=== PATIENT | female | born 1955 | race Caucasian/White ===

== ENCOUNTER 2017-04-03 18:00 | Emergency (ER) | payer OTHER ==
[2017-04-03 18:20] VITALS: TEMP 97.3; BMI 46.0
--- NOTE | 2017-04-03 18:20 | PDOC ---
Rapid Medical Evaluation Time Seen by Provider: 04/03/17 18:13 Medical Evaluation: Allergies Allergy/AdvReac Type Severity Reaction Status Date / Time No Known Allergies Allergy Verified 08/21/12 17:01 04/03/17 18:13 The patient presents with a chief complaint of: [Abdominal pain and vomiting today. No fever. ] I have performed a brief in-person evaluation of this patient. Pertinent physical exam findings: vss, [Generalized abdominal pain, lungs clear , RRR, ] I have ordered the following: [cbc, cmp, amylase, lipase. Patient is unstable on feet for further testing in triage.] The patient will proceed to the ED for further evaluation. Discharge Disposition - Diagnosis Abdominal pain - Referrals - Patient Instructions - Post Discharge Activity
[2017-04-03] MEDS ORDERED: morphine CARPU-JECT 2 MG/1 ML DISP.SYRIN IVPUSH ONE (19:21)
[2017-04-03] MEDS ORDERED: ONDANSETRON 4 MG/2 ML VIAL IVPUSH ONE (19:28)
--- NOTE | 2017-04-03 19:28 | PDOC ---
History of Present Illness - General Chief Complaint: Pain Stated Complaint: STOMACH PAIN Time Seen by Provider: 04/03/17 18:13 - History of Present Illness Initial Comments: Ms. Quinn is a 61yo obese mauritanian speaking F with a PMHX of GERD, HTN, HLD, DM2, Hypothyroidism who presents w/ sharp, constant, epigastric abdominal pain after eating dinner. Patient is a difficult historian, at times she states the pain radiates to the back, at times she says it radiates into the chest. Had 1 episode of non-bloody diarrhea. She has had this pain intermittently before after meals, but states this one is more severe, and is assoc w/ NBNB emesis x3. She is unable to keep any food down. Denies hematemesis/hematochezia. Denies CP, SOB, fevers, chills. No prior abdominal surgeries. PMD - Dr Angie Agrawal Allergies - NKDA SH - Denies alcohol, drugs, smoking SgHx - Shoulder surgery, no abd surgeries Past History - Past Medical History Allergies/Adverse Reactions: Allergies Allergy/AdvReac Type Severity Reaction Status Date / Time No Known Allergies Allergy Verified 08/21/12 17:01 Home Medications: Ambulatory Orders Aspirin [ASA -] 81 mg PO DAILY 04/03/17 Calcium Carbonate/Vitamin D3 [Oyster Shell Calcium Tablet] 1 each PO DAILY 04/03 Furosemide [Lasix -] 40 mg PO DAILY 04/03/17 Gemfibrozil [Lopid -] 600 mg PO BID 04/03/17 Glipizide [Glipizide Xl] 5 mg PO DAILY 04/03/17 Levothyroxine [Synthroid -] 125 mcg PO DAILY 04/03/17 Meclizine HCl [Antivert -] 25 mg PO DAILY PRN 04/03/17 Metformin HCl [Glucophage -] 500 mg PO BID 04/03/17 Metoclopramide HCl [Reglan -] 10 mg PO BID 04/03/17 Pantoprazole Sodium [Protonix -] 40 mg PO DAILY 04/03/17 Sertraline HCl [Zoloft -] 100 mg PO DAILY 04/03/17 Simvastatin [Zocor] 80 mg PO HS 04/03/17 Trazodone HCl [Desyrel -] 100 mg PO HS 04/03/17 Valsartan [Diovan] 160 mg PO DAILY 04/03/17 Asthma: Yes COPD: No Diabetes: Yes GI Disorders: Yes (GERD) HTN: Yes Hypercholesterolemia: Yes Psychiatric Problems: Yes (DEPRESSION) Thyroid Disease: Yes Other medical history: VERTIGO - Surgical History Abdominal Surgery: Yes (T.LIGATION) - Suicide/Smoking/Psychosocial Hx Smoking Status: Yes Smoking History: Former smoker Have you smoked in the past 12 months: No Number of Cigarettes Smoked Daily: 1 Information on smoking cessation initiated: No 'Breaking Loose' booklet given: 08/21/12 Hx Alcohol Use: No Drug/Substance Use Hx: No Substance Use Type: None Hx Substance Use Treatment: No *Physical Exam - Vital Signs Last Vital Signs Temp Pulse Resp BP Pulse Ox 97.3 F L 60 18 132/101 100 04/03/17 18:16 04/03/17 18:16 04/03/17 18:16 04/03/17 18:16 04/03/17 18:16 - Physical Exam Comments: GEN: AAOx3, NAD, obese female, Lying in moderate distress HEENT: PERRLA, EOMi CV: S1, S2, RRR LUNG: CTABL ABD: Soft, diffuse tender to palpation, mostly in epigastrium MSK: No edema, no erythema NEURO: CN 2-12 intact ED Treatment Course - LABORATORY CBC & Chemistry Diagram: 04/03/17 19:00 04/03/17 18:48 Medical Decision Making - Medical Decision Making 61yo obese F w/ HTN, HLD, GERD with intermittent post-prandial epigastric pain who presents w/ sudden, sharp, post-prandial epigastric pain w/ assoc emesis and diarrhea. Likely GI related DDX include: Cholecystitis, atypical ACS,, Pancreatitis, gastric ulcer, Perforation, -- CBC, CMP, Lipase, T&S, Coags -- Cardiac Profile, EKG -- CXR to r/o free air from perforation -- Abdominal U/S -- Morphine 2mg & Zofran Will Reassess.. *DC/Admit/Observation/Transfer Diagnosis at time of Disposition: Abdominal pain - Discharge Dispostion Disposition: HOME Condition at time of disposition: Stable Admit: No - Referrals Referrals: Angie Agrawal MD [Primary Care Provider] - - Patient Instructions Printed Discharge Instructions: DI for Gastroesophageal Reflux Disease (GERD) - Post Discharge Activity
[2017-04-03] MEDS ORDERED: ONDANSETRON 4 MG/2 ML VIAL ONE (19:34)
[2017-04-03] MEDS ORDERED: MORPHINE SULFATE 10 MG/1 ML *VIAL ONE (19:34)
[2017-04-03 20:02] LABS: ALBUMIN 4.6 g/dl (3.4-5.0); ALK PHOS 154 U/L (45-117); AMYLASE 72 U/L (25-115); ANION GAP 13 (8-16); BILIRUBIN,TOTAL 0.9 mg/dL (0.2-1.0); BLOOD UREA NITROGEN 20 mg/dL (7-18); CALCIUM 8.3 mg/dL (8.5-10.1); CHLORIDE 100 mmol/L (98-107); CO2 26 mmol/L (21-32); GLUCOSE,RANDOM 122 mg/dL (74-106); SGPT/ALT 84 U/L (12-78); SODIUM 139 mmol/L (136-145); TOT PROT 8.4 g/dl (6.4-8.2)
[2017-04-03 20:02] LABS: BASO % 0.3 % (0-2.0); EOS % 0.6 % (0-4.5); HEMOGLOBIN 13.3 GM/dL (10.7-15.3); LYMPH % 7.1 % (8-40); MCH 29.2 pg (25.7-33.7); MCHC 32.6 g/dl (32.0-36.0); MEAN CELL VOLUME 89.7 fl (80-96); MEAN PLT VOLUME 10.6 fl (7.5-11.1); MONO % 4.4 % (3.8-10.2); NEUT % 87.6 % (42.8-82.8); PLATELET COUNT 262 K/MM3 (134-434); RBC 4.56 M/mm3 (3.60-5.2); RDW 17.1 % (11.6-15.6); WHITE BLOOD COUNT 14.4 K/mm3 (4.0-10.0)
[2017-04-03 20:31] LABS: LIPASE 227 U/L (73-393); POTASSIUM 4.4 mmol/L (3.5-5.1); SGOT/AST 116 U/L (15-37)
--- NOTE | 2017-04-03 21:03 | PDOC ---
Attending Attestation - Resident Resident Name: Wali Rashid - ED Attending Attestation I have performed the following: I have examined & evaluated the patient, The case was reviewed & discussed with the resident, I agree w/resident's findings & plan, Exceptions are as noted - HPI HPI: 04/03/17 20:56 61yoF hx of morbid obesity, HTN, HL resents w/ epig pain after eating. Occ gets this but more severe than usual tongiht, + vomiting x 4 episodes at home. No diarrhea, no hx of abd surgery. Ate fish as rice. PMhx per resident note SHx per resident note NKDA VS reviewed, as charted moaning in pain but NAD MM slight dry RRR CTA soft, NTND, no guarding, no rebound Neuro grossly intact A: 61yoF w/ morbid obesity and cardaic risk factors presents w/ severe epig abd pain and vomiting after eating. DDx includes acute cholecystitis, pancreatitis, PUD/GERD, AGE, less likely anginal equivalent.. - labs - RUQ sono - EKG - upright chest - reeval for dispo - Physicial Exam PE: 04/03/17 21:03 See above - Medical Decision Making 04/03/17 21:03 See above
[2017-04-03 21:41] LABS: INR 0.98 (0.82-1.09); PROTHROMBIN TIME (PATIENT) 11.1 SEC (9.98-11.88)
[2017-04-03 23:11] VITALS: BP 156/88; PULSE 73
[2017-04-03] MEDS ORDERED: MAG HYDROX/AL HYDROX/SIMETH 30 ML UNIT-DOSE CUP PO ONE (23:15)
[2017-04-03] MEDS ORDERED: MAG HYDROX/AL HYDROX/SIMETH 30 ML UNIT-DOSE CUP ONE (23:22)
[2017-04-03] MEDS ORDERED: FAMOTIDINE 20 MG/50 ML IVPB 20 MG/50 ML MG IVPB ONE (23:22)
[2017-04-03] MEDS ORDERED: FAMOTIDINE IV 20 MG/12 ML VIAL IVPUSH SCH (23:30)
--- NOTE | 2017-04-04 13:44 | EKG ---
Test Reason : Blood Pressure : / mmHG Vent. Rate : 067 BPM Atrial Rate : 067 BPM P-R Int : 000 ms QRS Dur : 074 ms QT Int : 412 ms P-R-T Axes : 067 225 -03 degrees QTc Int : 435 ms POOR DATA QUALITY, INTERPRETATION MAY BE ADVERSELY AFFECTED NORMAL SINUS RHYTHM RIGHT SUPERIOR AXIS DEVIATION RIGHT VENTRICULAR HYPERTROPHY WITH REPOLARIZATION ABNORMALITY CANNOT RULE OUT ANTEROSEPTAL INFARCT , AGE UNDETERMINED ABNORMAL ECG WHEN COMPARED WITH ECG OF 29-AUG-2012 08:59, QUESTIONABLE CHANGE IN QRS AXIS MINIMAL CRITERIA FOR ANTEROSEPTAL INFARCT ARE NOW PRESENT Confirmed by MD LINDY, VINAY ([id number]) on 04/04/2017 1:43:54 PM Referred By: Confirmed By:VINAY ISRAEL MD
== END 2017-04-03 23:56 | disposition home or self-care (01) ==
LOC: JER 18:00
PROC: 3E033NZ Introduction of Analgesics, Hypnotics, Sedatives into Peripheral Vein, Percutaneous Approach (ICD-10-PCS; principal; 2017-04-03)
PROC: 3E033GC Introduction of Other Therapeutic Substance into Peripheral Vein, Percutaneous Approach (ICD-10-PCS; 2017-04-03)
PROC: 3E033GC Introduction of Other Therapeutic Substance into Peripheral Vein, Percutaneous Approach (ICD-10-PCS; 2017-04-03)
DX: R10.84 Generalized abdominal pain (principal); K21.9 Gastro-esophageal reflux disease without esophagitis; I10 Essential (primary) hypertension; E11.9 Type 2 diabetes mellitus without complications; Z79.84 Long term (current) use of oral hypoglycemic drugs; E03.9 Hypothyroidism, unspecified
CPT/HCPCS: 36415; 71045-TC; 76705-TC; 80053; 82150; 82550; 82553; 83690; 84484; 85025; 85610; 93005; 93010; 96374; 96375; 99284-25

== ENCOUNTER 2018-08-13 17:17 | Inpatient (IN) | payer OTHER | END 2018-08-17 16:30 | disposition home health service (06) | LOC: J5S 08-14 04:02 → JER 17:17 → JERBED 22:27 ==

== ENCOUNTER 2019-05-12 19:24 | Observation (INO) | payer OTHER ==
[2019-05-12 19:38] VITALS: BMI 44.1
--- NOTE | 2019-05-12 21:26 | PDOC ---
History of Present Illness - General Chief Complaint: Lightheaded Stated Complaint: DIZZINESS/WEAKNESS History Source: Patient Exam Limitations: No Limitations - History of Present Illness Initial Comments: 05/12/19 21:21 63 yo female pmh morbid obesity, HTN, HLD, NIDDM, hypothyroidism, CHF, asthma/COPD (former smoker, quit 15y ago) on albuterol and Symbicort presents to the ED for 2 weeks of cough and fevers (fevers resolved) with new epigastric burning, nausea and diaphoresis. Pt states the epigastric burning, nausea, SOB and diaphoresis started at 7 pm. Denies hx of WI, CP, back pain, calf swel ling/tenderness, changes in bowel or bladder habits. Denies sick contacts or recent travel. Pt admitted 08/2018 for bronchitis Past History - Past Medical History Allergies/Adverse Reactions: Allergies Allergy/AdvReac Type Severity Reaction Status Date / Time No Known Allergies Allergy Verified 05/12/19 19:38 Home Medications: Ambulatory Orders Aspirin [ASA -] 81 mg PO DAILY 04/03/17 Furosemide [Lasix -] 40 mg PO DAILY 04/03/17 Gemfibrozil [Lopid -] 600 mg PO BID 04/03/17 Glipizide [Glipizide Xl] 5 mg PO DAILY 04/03/17 Meclizine HCl [Antivert -] 25 mg PO DAILY PRN 04/03/17 Pantoprazole Sodium [Protonix -] 40 mg PO DAILY 04/03/17 Sertraline HCl [Zoloft -] 100 mg PO DAILY 04/03/17 Simvastatin [Zocor] 80 mg PO HS 04/03/17 Valsartan [Diovan] 160 mg PO DAILY 04/03/17 metFORMIN HCL [Glucophage -] 500 mg PO BID 04/03/17 Albuterol Sulfate Inhaler - [Ventolin HFA Inhaler -] 1 puff IH DAILY 08/13/18 Azithromycin [Zithromax 250mg Tablets -] 250 mg PO UTDICT #6 tab 08/13/18 Budesonide/Formeterol Fumarate [SYMBICORT 160/4.5mcg -] 1 inh PO BID 08/13/18 Acetaminophen [Tylenol .Regular Strength -] 650 mg PO Q6H PRN tablet 08/17/18 Azithromycin [Zithromax 250mg Tablets -] 250 mg PO DAILY #2 tablet MDD 1 08/17/18 Levothyroxine [Synthroid -] 150 mcg PO DAILY@0700 tablet 08/17/18 Prednisone See Taper PO DAILY 12 Days #42 tablet 08/17/18 Topiramate [Topamax -] 50 mg PO DAILY tablet 08/17/18 Asthma: Yes COPD: No Diabetes: Yes GI Disorders: Yes (GERD) HTN: Yes Hypercholesterolemia: Yes Psychiatric Problems: Yes (DEPRESSION) Thyroid Disease: Yes - Surgical History Abdominal Surgery: Yes (T.LIGATION) - Psycho Social/Smoking Cessation Hx Smoking Status: Yes Smoking History: Never smoked Have you smoked in the past 12 months: No Number of Cigarettes Smoked Daily: 1 'Breaking Loose' booklet given: 08/21/12 Hx Alcohol Use: No Drug/Substance Use Hx: No Substance Use Type: None Hx Substance Use Treatment: No Review of Systems - Review of Systems Constitutional: Yes: See HPI HEENTM: Yes: See HPI Respiratory: Yes: See HPI Cardiac (ROS): Yes: See HPI ABD/GI: Yes: See HPI : Yes: See HPI Musculoskeletal: Yes: See HPI Integumentary: Yes: See HPI Neurological: Yes: See HPI *Physical Exam - Vital Signs Last Vital Signs Temp Pulse Resp BP Pulse Ox 98.1 F 69 18 139/72 98 05/12/19 19:36 05/12/19 19:36 05/12/19 19:36 05/12/19 19:36 05/12/19 19:36 - Physical Exam General Appearance: Yes: Nourished, Appropriately Dressed. No: Apparent Distress HEENT: positive: EOMI Neck: positive: Supple. negative: Carotid bruit Respiratory/Chest: positive: Lungs Clear, Normal Breath Sounds. negative: Accessory Muscle Use, Crackles, Rales, Rhonchi, Stridor, Wheezing Cardiovascular: positive: Regular Rhythm, Regular Rate, S1, S2. negative: Edema, JVD, Murmur Vascular Pulses: Dorsalis-Pedis (R): 4+, Doralis-Pedis (L): 4+ Gastrointestinal/Abdominal: positive: Flat, Soft. negative: Pulsatile Mass, Protuberent, Distended, Guarding, Rebound, Tenderness Musculoskeletal: negative: CVA Tenderness Extremity: positive: Normal Capillary Refill, Normal Inspection, Normal Range of Motion Integumentary: positive: Normal Color, Dry, Warm Neurologic: positive: Fully Oriented, Alert, Normal Mood/Affect Heart Score/ECG Review - History History: Highly suspicious - Electrocardiogram EKG: Normal - Age Age: 45-65 - Risk Factors Risk Factors Heart Score: Yes Hx Hypercholesterolemia, Yes Hx Hypertension, Yes Hx Diabetes, Yes Smoking History, Yes Hx Obesity Based on the list above the patient has:: >/=3 risk factors or Hx atherosclerotic disease - Troponin Troponin: </= normal limit - Score Heart Score - Total: 5 ED Treatment Course - LABORATORY CBC & Chemistry Diagram: 05/12/19 21:40 05/12/19 21:40 - RADIOLOGY Radiology Studies Ordered: Category Date Time Status CHEST PA & LAT [RAD] Stat Radiology 05/12/19 21:07 Ordered Medical Decision Making - Medical Decision Making 05/12/19 22:46 63 yo female pmh morbid obesity, HTN, HLD, NIDDM, hypothyroidism, CHF, asthma/COPD (former smoker, quit 15y ago) on albuterol and Symbicort presents to the ED for 2 weeks of cough and fevers (fevers resolved) with new epigastric burning, nausea and diaphoresis. Pt states the epigastric burning, nausea, SOB and diaphoresis started at 7 pm. Denies hx of WI, CP, back pain, calf swelling/tenderness, changes in bowel or bladder habits. Denies sick contacts or recent travel. Pt admitted 08/2018 for bronchitis Vitals WNL Heart score over 4, concerning story for ACS. Trops neg EKG NSR without acute changes from last admission 08/2018 Pt admits to SOB, given steroids and albuterol Pt to be admitted for ACS r/o MB sent, s/o to night team for further care and admission Discharge - Discharge Information Problems reviewed: Yes Clinical Impression/Diagnosis: ACS (acute coronary syndrome) Condition: Stable - Admission Yes - Follow up/Referral Referrals: Yoon Chao NP [Primary Care Provider] - - Patient Discharge Instructions - Post Discharge Activity
--- NOTE | 2019-05-12 21:30 | PDOC ---
Attending Attestation - Resident Resident Name: Malik Antunez - ED Attending Attestation I have performed the following: I have examined & evaluated the patient, The case was reviewed & discussed with the resident, I agree w/resident's findings & plan - HPI HPI: 05/12/19 21:38 Pt comes with 2 weeks of cough and fever and new SOB. Pt has epigastric pain SHe was doing ok until she came to the hospital to visit her daughter who has liver disease due to alcoholism. Pt is stressed and upset and has SOB and chest pain. Pt looks unwell - Physicial Exam PE: 05/12/19 21:40 Agree with resident exam 05/12/19 22:42 Heart lungs normal no wheeze no flank pain no rash pt is obese abd soft NT ND no pitting edema pt's face is cushinoid -- she is on flovent - Medical Decision Making 05/12/19 21:40 Labs CXR; pt will get steroids and duonebs She will have flu cx sent Pt will be reassessed 05/12/19 22:43 Pt will be admitted for CP given all her risk factors Heart Score/ECG Review - History History: Highly suspicious - Electrocardiogram EKG: Normal - Age Age: 45-65 - Risk Factors Risk Factors Heart Score: Yes Hx Hypercholesterolemia, Yes Hx Hypertension, Yes Hx Diabetes, Yes Positive family hx of cardiac disease, Yes Hx Obesity Based on the list above the patient has:: >/=3 risk factors or Hx atherosclerotic disease - Troponin Troponin: </= normal limit - Score Heart Score - Total: 5
[2019-05-12] MEDS ORDERED: methylPREDNISolone NA SUCC 125 MG/2 ML VIAL IVPUSH ONE (21:41)
[2019-05-12] MEDS ORDERED: ALBUTEROL SO4 2.5/IPRATROPIUM 0.5 INH SOL 3 ML VIAL.NEB. NEB ONE ×2 (21:41→21:46)
[2019-05-12] MEDS ORDERED: methylPREDNISolone NA SUCC 125 MG/2 ML VIAL ONE (21:47)
[2019-05-12 22:02] LABS: BASO % 0.5 % (0-2.0); EOS % 3.7 % (0-4.5); HEMATOCRIT 37.5 % (32.4-45.2); HEMOGLOBIN 12.2 GM/dL (10.7-15.3); LYMPH % 26.1 % (8-40); MCH 27.5 pg (25.7-33.7); MCHC 32.4 g/dl (32.0-36.0); MEAN CELL VOLUME 85.1 fl (80-96); MEAN PLT VOLUME 8.8 fl (7.5-11.1); MONO % 9.9 % (3.8-10.2); NEUT % 59.8 % (42.8-82.8); PLATELET COUNT 420 K/MM3 (134-434); RBC 4.41 M/mm3 (3.60-5.2); RDW 15.8 % (11.6-15.6); WHITE BLOOD COUNT 11.7 K/mm3 (4.0-10.0)
[2019-05-12 22:15] LABS: INR 0.87 (0.83-1.09); PROTHROMBIN TIME (PATIENT) 10.2 SEC (9.7-13.0)
[2019-05-12 22:17] LABS: ACTIVATED PTT 34.3 SECONDS (25.2-36.5)
[2019-05-12 22:23] LABS: ALBUMIN 3.9 g/dl (3.4-5.0); ALK PHOS 186 U/L (45-117); ANION GAP 10 MMOL/L (8-16); BILIRUBIN,TOTAL 0.4 mg/dL (0.2-1); BLOOD UREA NITROGEN 16.3 mg/dL (7-18); CHLORIDE 105 mmol/L (98-107); CO2 28 mmol/L (21-32); CREATININE 0.8 mg/dL (0.55-1.3); GLUCOSE,RANDOM 89 mg/dL (74-106); MAGNESIUM 2.3 mg/dL (1.8-2.4); SGOT/AST 38 U/L (15-37); SGPT/ALT 32 U/L (13-61); SODIUM 142 mmol/L (136-145); TOT PROT 7.5 g/dl (6.4-8.2)
[2019-05-12] MEDS ORDERED: MAG HYDROX/AL HYDROX/SIMETH -MYLANTA- ORAL SUSPENSION PO ONE (22:42)
[2019-05-12] MEDS ORDERED: ASPIRIN 325 MG TABLET PO ONE (22:42)
[2019-05-12] MEDS ORDERED: FAMOTIDINE 20 MG/50 ML IVPB 20 MG/50 ML MG IVPB ONE ×2 (22:42→22:50)
--- NOTE | 2019-05-12 22:43 | PDOC ---
*Physical Exam - Vital Signs Last Vital Signs Temp Pulse Resp BP Pulse Ox 98.1 F 69 18 139/72 98 05/12/19 19:36 05/12/19 19:36 05/12/19 19:36 05/12/19 19:36 05/12/19 19:36 ED Treatment Course - LABORATORY CBC & Chemistry Diagram: 05/12/19 21:40 05/12/19 21:40 - ADDITIONAL ORDERS Additional order review: Laboratory Results 05/12/19 05/12/19 05/12/19 21:40 21:40 21:40 PT with INR 10.20 INR 0.87 PTT (Actin FS) 34.3 Sodium 142 Potassium 4.0 Chloride 105 Carbon Dioxide 28 Anion Gap 10 BUN 16.3 Creatinine 0.8 Est GFR (CKD-EPI)AfAm 90.94 Est GFR (CKD-EPI)NonAf 78.46 Random Glucose 89 Calcium 9.0 Magnesium 2.3 Total Bilirubin 0.4 AST 38 H ALT 32 Alkaline Phosphatase 186 H Creatine Kinase 183 Troponin I < 0.02 B-Natriuretic Peptide 146.4 H Total Protein 7.5 Albumin 3.9 05/12/19 21:40 RBC 4.41 MCV 85.1 MCHC 32.4 RDW 15.8 H MPV 8.8 Neutrophils % 59.8 Lymphocytes % 26.1 Monocytes % 9.9 Eosinophils % 3.7 Basophils % 0.5 - Medications Given in the ED: ED Medications Discontinued Medications Generic Name Dose Route Start Last Admin Trade Name Freq PRN Reason Stop Dose Admin Albuterol/Ipratropium 3 amp 05/12/19 21:41 05/12/19 21:55 Duoneb - NEB 05/12/19 21:42 3 amp ONCE ONE Administration Methylprednisolone Sodium Succinate 125 mg 05/12/19 21:41 05/12/19 21:55 Solu-Medrol - IVPUSH 05/12/19 21:42 125 mg ONCE ONE Administration Medical Decision Making - Medical Decision Making 05/12/19 22:42 Sign out received from Dr. Antunez. 63F w/hx HTN, HLD, morbid obesity, CHF, COPD p.w acute onset sob, chest pain, epigastric pain. Pending: Urine Admission for ACS r/o --- Case discussed with admitting team, patient admitted to telemetry obs unit. Discharge - Discharge Information Problems reviewed: Yes Clinical Impression/Diagnosis: ACS (acute coronary syndrome) Condition: Stable - Admission Yes - Follow up/Referral - Patient Discharge Instructions - Post Discharge Activity
[2019-05-12] MEDS ORDERED: ASPIRIN 325 MG ENTERIC COATED TABLET (FP) ONE (22:50)
[2019-05-12] MEDS ORDERED: MAG HYDROX/AL HYDROX/SIMETH 30 ML UNIT-DOSE CUP ONE (22:50)
[2019-05-12 22:55] LABS: EPI CELLS 5.3 /HPF (0-5/HPF); HYALINE CASTS 5 /lpf (0-8); URINE APPEARANCE CLOUDY; URINE BACTERIA 257.6 /hpf (NEGATIVE); URINE BILIRUBIN NEGATIVE (NEGATIVE); URINE COLOR YELLOW; URINE GLUCOSE (UA) NEGATIVE (NEGATIVE); URINE KETONE NEGATIVE (NEGATIVE); URINE LEUK ESTERASE 2+ (NEGATIVE); URINE NITRITE NEGATIVE (NEGATIVE); URINE PROTEIN NEGATIVE (NEGATIVE); URINE UROBILINOGEN 0.2 mg/dL (0.2-1.0); URINE WBC 30 /hpf (0-5)
--- NOTE | 2019-05-13 00:54 | PN ---
Teaching Attending Note Name of Resident: Matias Parsons ATTENDING PHYSICIAN STATEMENT I saw and evaluated the patient. I reviewed the resident's note and discussed the case with the resident. I agree with the resident's findings and plan as documented. SUBJECTIVE: 63-year-old woman morbidly obese with a history of hypertension, dyslipidemia, [id number] diabetes mellitus, hypothyroidism, COPD, depression presents complaining of shortness of breath and some chest discomfort which started earlier on 05/12/2019. She received Solu-Medrol and bronchodilator treatments in the emergency room which allegedly resolved her chest pain and shortness of breath. Patient also complained of some mild nonproductive cough that she has had for several weeks. Denied any fevers and chills OBJECTIVE: Last Vital Signs Temp Pulse Resp BP Pulse Ox 98.1 F 72 20 161/76 98 05/12/19 19:36 05/13/19 00:11 05/13/19 00:11 05/13/19 00:11 05/13/19 00:11 On physical exam patient is a morbidly obese woman not in any acute distress. Lungs are clear to auscultation, cardiac sounds were normal S1, S2 with no murmurs. Abdomen was quite obese with no tenderness to palpation, soft, positive bowel sounds in 4 quadrants.Lower extremities with no pedal edema Abnormal Lab Results 05/12/19 05/12/19 05/12/19 21:40 21:40 21:40 WBC 11.7 H RDW 15.8 H AST 38 H Alkaline Phosphatase 186 H B-Natriuretic Peptide 146.4 H Ur Leukocyte Esterase 05/12/19 22:46 WBC RDW AST Alkaline Phosphatase B-Natriuretic Peptide Ur Leukocyte Esterase 2+ H Chest x-ray reviewed with reportaortic knob and descending aorta are well-defi antonette. No focal infiltrate or pleural effusion. No pneumothorax or pulmonary contusion identified. ASSESSMENT AND PLAN: Chest pain and subjective shortness of breath which are now improved. ACS shou ld be ruled out chest pain seem to be pleuritic/atypical.Do not suspect COPD exacerbation at this time as patient was not having significant wheezing.Suspect may be component of obesity hypoventilation syndrome. Telemetry observation Trend troponins Cardiology evaluation Transthoracic echo Blood gas N.p.o. for possible cardiac stress test Nitroglycerin sublingual. #Chronic leukocytosisunknown etiology. Should consider primary bone marrow disorder such as chronic leukemia versus MDS. Hematology evaluation Trend CBC Blood smear Ultrasound of spleen to evaluate for splenomegaly #Uncontrolled diabetes mellitus NovoLog sliding scale A1c Diabetic diet #Hypertension Salt restriction #Alkaline phosphatase elevation Right upper quadrant abdominal ultrasound to rule out cholestatic process #Hypothyroidism Send TSH Continue with home dose levothyroxine 150 mcg p.o. daily #Hypertensionuncontrolled Continue with home dose valsartan 160 mg p.o. daily, furosemide 40 mg p.o. daily #COPD Continue with Symbicort twice daily Albuterol nebulizer PRN #Morbid obesity Dietary evaluation for calorie count Would refer to bariatric surgery upon discharge #DVT prophylaxisheparin subcutaneously
[2019-05-13] MEDS ORDERED: SODIUM CHLORIDE 1,000 ML IV SCH (01:30)
--- NOTE | 2019-05-13 01:36 | HP ---
CHIEF COMPLAINT: Shortness of breath PCP: Yoon Chao HISTORY OF PRESENT ILLNESS: 63F PMH HTN, HLD, NIDDM, hypothyroidism, COPD, depression who presents today with an episode of SOB and chest pain. Patient was visiting her daughter in this hospital; while she was sitting and talking to daughter she noted that she became lightheaded, chest pain, short of breath, and had epigastric pain. She was brought down to the ED. She has not felt similar epigastric pain before, and her chest pain and shortness of breath were alleviated by treatments in the ED. She does not feel anxious, panicked, or have any new stressors in her life. She endorses a non productive cough that has persisted over 2 weeks, and fevers and chills. She still endorses pleuritic pain. She has not had any PO intake today except for water. She denies any nausea, vomiting, dysuria, hematuria and urinary frequency. She follows with Dr. Momin for cardiology but is not able to explain any cardiac workup she has had completed before. ER course was notable for: (1) Duonebs and Solumedrol 125 mg IV were give (2) Patient was given ASA 325, [place], pepcid (3) Chest X-Ray showed hyperinflated lungs and flat diaphragm, no acute process. Recent Travel: No travel history PAST MEDICAL HISTORY: HTN, HLD, NIDDM, hypothyroidism, COPD, depression, ?CHF FAMILY MEDICAL HISTORY: Cardiac Hx on both sides of family. Unknown cancer history in father. PAST SURGICAL HISTORY: Tubal ligation Social History: Smoking: Quit smoking 15 years ago,unknown duration Alcohol: Denies Drugs: Denies Lives alone at home, ambulates with cane. Is able to perform all ADL by herself. Allergies No Known Allergies Allergy (Verified 05/12/19 19:38) HOME MEDICATIONS: Home Medications Medication Instructions Recorded Aspirin [ASA -] 81 mg PO DAILY 04/03/17 Furosemide [Lasix -] 40 mg PO DAILY 04/03/17 Gemfibrozil [Lopid -] 600 mg PO BID 04/03/17 Glipizide [Glipizide Xl] 5 mg PO DAILY 04/03/17 Meclizine HCl [Antivert -] 25 mg PO DAILY PRN 04/03/17 Pantoprazole Sodium [Protonix -] 40 mg PO DAILY 04/03/17 Sertraline HCl [Zoloft -] 100 mg PO DAILY 04/03/17 Simvastatin [Zocor] 80 mg PO HS 04/03/17 Valsartan [Diovan] 160 mg PO DAILY 04/03/17 metFORMIN HCL [Glucophage -] 500 mg PO BID 04/03/17 Albuterol Sulfate Inhaler - 1 puff IH DAILY 08/13/18 [Ventolin HFA Inhaler -] Azithromycin [Zithromax 250mg 250 mg PO UTDICT #6 tab 08/13/18 Tablets -] Budesonide/Formeterol Fumarate 1 inh PO BID 08/13/18 [SYMBICORT 160/4.5mcg -] Acetaminophen [Tylenol .Regular 650 mg PO Q6H PRN tablet 08/17/18 Strength -] Azithromycin [Zithromax 250mg 250 mg PO DAILY #2 tablet MDD 1 08/17/18 Tablets -] Levothyroxine [Synthroid -] 150 mcg PO DAILY@0700 tablet 08/17/18 Prednisone See Taper PO DAILY 12 Days #42 08/17/18 tablet Topiramate [Topamax -] 50 mg PO DAILY tablet 08/17/18 REVIEW OF SYSTEMS CONSTITUTIONAL: Present: fevers, chills, diaphoresis Absent: generalized weakness, malaise, loss of appetite, weight change HEENT: Absent: rhinorrhea, nasal congestion, throat pain, throat swelling, difficulty swallowing, mouth swelling, ear pain, eye pain, visual changes CARDIOVASCULAR: Present: chest pain, lightheadedness Absent: syncope, palpitations, irregular heart rate, peripheral edema RESPIRATORY: Present: nonproductive cough, shortness of breath Absent: dyspnea with exertion, orthopnea, wheezing, stridor, hemoptysis GASTROINTESTINAL: Present: abdominal pain Absent: abdominal distension, nausea, vomiting, diarrhea, constipation, melena, hematochezia GENITOURINARY: Absent: dysuria, frequency, urgency, hesitancy, hematuria, flank pain, genital pain MUSCULOSKELETAL: Present: b/l chronic knee pain Absent: myalgia, arthralgia, back pain, neck pain SKIN: Absent: rash, itching, pallor HEMATOLOGIC/IMMUNOLOGIC: Absent: easy bleeding, easy bruising, lymphadenopathy, frequent infections ENDOCRINE: Absent: unexplained weight gain, unexplained weight loss, heat intolerance, cold intolerance NEUROLOGIC: Absent: headache, focal weakness or paresthesias, dizziness, unsteady gait, seizure, mental status changes, bladder or bowel incontinence PSYCHIATRIC: Absent: anxiety, depression, suicidal or homicidal ideation, hallucinations. PHYSICAL EXAMINATION Vital Signs - 24 hr 05/12/19 05/13/19 19:36 00:11 Temperature 98.1 F Pulse Rate 69 Pulse Rate [ 72 Right Radial] Respiratory 18 20 Rate Blood Pressure 139/72 Blood Pressure 161/76 [Left Arm] O2 Sat by Pulse 98 98 Oximetry (%) GENERAL: Awake, alert, and fully oriented, in no acute distress. HEAD: Normal with no signs of trauma. EYES: Pupils equal, round and reactive to light, extraocular movements intact, sclera anicteric, conjunctiva clear. No lid lag. EARS, NOSE, THROAT: Ears normal, nares patent, oropharynx clear without exudates. Moist mucous membranes. NECK: Normal range of motion, supple without lymphadenopathy, JVD, or masses. LUNGS: Poor air entry, no wheezing or crackles. HEART: S1, S2, holosystlic murmur present at sternal border. ABDOMEN: Soft, nontender, not distended, normoactive bowel sounds, no guarding, no rebound, no masses. MUSCULOSKELETAL: Normal range of motion at all joints. No bony deformities or tenderness. UPPER EXTREMITIES: 2+ pulses, warm, well-perfused. No cyanosis. No clubbing. No peripheral edema. LOWER EXTREMITIES: 2+ pulses, warm, well-perfused. No calf tenderness. No peripheral edema. NEUROLOGICAL: Cranial nerves II-XII intact. Normal speech. Normal gait. PSYCHIATRIC: Cooperative. Good eye contact. Appropriate mood and affect. SKIN: Warm, dry, normal turgor, no rashes or lesions noted, normal capillary refill. Laboratory Results - last 24 hr 05/12/19 05/12/19 05/12/19 21:40 21:40 21:40 WBC 11.7 H RBC 4.41 Hgb 12.2 Hct 37.5 MCV 85.1 MCH 27.5 MCHC 32.4 RDW 15.8 H Plt Count 420 MPV 8.8 Absolute Neuts (auto) 7.0 Neutrophils % 59.8 Lymphocytes % 26.1 Monocytes % 9.9 Eosinophils % 3.7 Basophils % 0.5 Nucleated RBC % 0 PT with INR 10.20 INR 0.87 PTT (Actin FS) 34.3 Sodium 142 Potassium 4.0 Chloride 105 Carbon Dioxide 28 Anion Gap 10 BUN 16.3 Creatinine 0.8 Est GFR (CKD-EPI)AfAm 90.94 Est GFR (CKD-EPI)NonAf 78.46 Random Glucose 89 Calcium 9.0 Magnesium 2.3 Total Bilirubin 0.4 AST 38 H ALT 32 Alkaline Phosphatase 186 H Creatine Kinase 183 Creatine Kinase Index 1.4 CK-MB (CK-2) 2.6 Troponin I < 0.02 B-Natriuretic Peptide Total Protein 7.5 Albumin 3.9 Urine Color Urine Appearance Urine pH Ur Specific [place] Urine Protein Urine Glucose (UA) Urine Ketones Urine Blood Urine Nitrite Urine Bilirubin Urine Urobilinogen Ur Leukocyte Esterase Urine WBC (Auto) Urine Casts (Auto) U Epithel Cells (Auto) Urine Bacteria (Auto) Influenza A (Rapid) Influenza B (Rapid) 05/12/19 05/12/19 05/12/19 21:40 21:40 22:46 WBC RBC Hgb Hct MCV MCH MCHC RDW Plt Count MPV Absolute Neuts (auto) Neutrophils % Lymphocytes % Monocytes % Eosinophils % Basophils % Nucleated RBC % PT with INR INR PTT (Actin FS) Sodium Potassium Chloride Carbon Dioxide Anion Gap BUN Creatinine Est GFR (CKD-EPI)AfAm Est GFR (CKD-EPI)NonAf Random Glucose Calcium Magnesium Total Bilirubin AST ALT Alkaline Phosphatase Creatine Kinase Creatine Kinase Index CK-MB (CK-2) Troponin I B-Natriuretic Peptide 146.4 H Total Protein Albumin Urine Color Yellow Urine Appearance Cloudy Urine pH 5.0 D Ur Specific [place] 1.012 Urine Protein Negative Urine Glucose (UA) Negative Urine Ketones Negative Urine Blood Negative Urine Nitrite Negative Urine Bilirubin Negative Urine Urobilinogen 0.2 Ur Leukocyte Esterase 2+ H Urine WBC (Auto) 30 Urine Casts (Auto) 5 U Epithel Cells (Auto) 5.3 Urine Bacteria (Auto) 257.6 Influenza A (Rapid) Negative Influenza B (Rapid) Negative ASSESSMENT/PLAN: 63F PMH HTN, HLD, NIDDM, hypothyroidism, COPD, depression who presents today with an episode of SOB and chest pain. 1) Chest Pain - Rule out ACS - Trops negative x2 - Echo ordered - Tylenol 1000 mg IV Q6H PRN - TSH ordered - Likely due to COPD exacerbation, has poor air entry, and chest pain worsens with breathing. 2) Chronic Leukocytosis - Has not had workup prior - Blood smear ordered - Heme/Onc, Dr. Alvarado, consulted. Appreciate recs 3) Hx of COPD/ COPD exacerbation - Chest x-ray shows COPD without infiltrate - F/U ABG - Duonebs - Sleep study outpatient referral. 4) Transaminitis - RUQ U/S ordered, F/U read - Trend CMP DVT: Heparin SQ TID F: NS @ 50 E: Trend CMP N: NPO if stress test needed Dispo: Telemetry observation Visit type - Emergency Visit Emergency Visit: Yes ED Registration Date: 05/12/19 Care time: The patient presented to the Emergency Department on the above date and was hospitalized for further evaluation of their emergent condition. - New Patient This patient is new to me today: Yes Date on this admission: 05/12/19 - Critical Care Critical Care patient: No ATTENDING PHYSICIAN STATEMENT I saw and evaluated the patient. I reviewed the resident's note and discussed the case with the resident. I agree with the resident's findings and plan as documented. SUBJECTIVE: OBJECTIVE: ASSESSMENT AND PLAN:
[2019-05-13] MEDS ORDERED: PATIENT'S OWN MEDICATION (NON-FORMULARY) (Losartan Potassium [Losartan Potassium] 100 MG) PO SCH (02:49)
[2019-05-13 03:04] LABS: URINE RBC 7 /hpf (0-4)
[2019-05-13] MEDS ORDERED: LOSARTAN POTASSIUM 50 MG TABLET (FP) ONE (03:18)
[2019-05-13] MEDS: ALBUTEROL SO4 2.5/IPRATROPIUM 0.5 INH SOL 3 ML VIAL.NEB. NEB SCH ×3 (04:15→11:57)
[2019-05-13] MEDS ORDERED: HEPARIN NA (PORCINE) 5,000 UNITS/ML 1ML VIAL ONE ×2 (06:10→08:30)
[2019-05-13] MEDS ORDERED: LEVOTHYROXINE NA 25 MCG TABLET (FP) ONE (06:10)
[2019-05-13] MEDS: HEPARIN NA (PORCINE) 5,000 UNITS/ML 1ML VIAL SQ SCH ×2 (06:15→14:58)
[2019-05-13 06:49] LABS: ARTERIAL BLD GAS O2 SATURATION 91.8 % (95-98); ARTERIAL BLOOD GAS PCO2 40.1 mmHg (35-45); ARTERIAL BLOOD GAS pH 7.37 (7.35-7.45)
[2019-05-13 06:50] LABS: ALLENS TEST POSITIVE
[2019-05-13] MEDS ORDERED: LEVOTHYROXINE NA 150 MCG TABLET PO SCH (07:00)
[2019-05-13 07:40] LABS: BASO % 0.6 % (0-2.0); HEMATOCRIT 39.1 % (32.4-45.2); HEMOGLOBIN 12.6 GM/dL (10.7-15.3); LYMPH % 11.7 % (8-40); MCH 27.7 pg (25.7-33.7); MCHC 32.1 g/dl (32.0-36.0); MEAN CELL VOLUME 86.2 fl (80-96); MEAN PLT VOLUME 9.2 fl (7.5-11.1); MONO % 0.8 % (3.8-10.2); NEUT % 86.9 % (42.8-82.8); PLATELET COUNT 422 K/MM3 (134-434); RBC 4.54 M/mm3 (3.60-5.2); RDW 16.1 % (11.6-15.6)
[2019-05-13] MEDS ORDERED: INSULIN (NOVOLOG) ASPART 100 UNITS/ML 10ML VIAL ONE (08:24)
[2019-05-13 08:25] LABS: ALBUMIN 3.9 g/dl (3.4-5.0); ALK PHOS 192 U/L (45-117); ANION GAP 12 MMOL/L (8-16); BILIRUBIN,TOTAL 0.5 mg/dL (0.2-1); BLOOD UREA NITROGEN 15.7 mg/dL (7-18); CALCIUM 9.2 mg/dL (8.5-10.1); CHLORIDE 106 mmol/L (98-107); CO2 22 mmol/L (21-32); CREATININE 0.9 mg/dL (0.55-1.3); GLUCOSE,RANDOM 224 mg/dL (74-106); POTASSIUM 4.7 mmol/L (3.5-5.1); SGOT/AST 33 U/L (15-37); SGPT/ALT 32 U/L (13-61); SODIUM 141 mmol/L (136-145); TOT PROT 7.9 g/dl (6.4-8.2)
[2019-05-13] MEDS ORDERED: ALBUTEROL SO4 2.5/IPRATROPIUM 0.5 INH SOL 3 ML VIAL.NEB. NEB ONE ×2 (08:28→11:34)
[2019-05-13] MEDS ORDERED: FAMOTIDINE 20 MG/50 ML IVPB 20 MG/50 ML MG IVPB ONE (08:30)
[2019-05-13] MEDS: INSULIN SLIDING SCALE (NOVOLOG) 1 VIAL SQ SCH ×2 (08:44→14:57)
--- NOTE | 2019-05-13 09:31 | EKG ---
Test Reason : Blood Pressure : / mmHG Vent. Rate : 065 BPM Atrial Rate : 065 BPM P-R Int : 166 ms QRS Dur : 076 ms QT Int : 430 ms P-R-T Axes : 068 051 042 degrees QTc Int : 447 ms NORMAL SINUS RHYTHM LOW VOLTAGE QRS BORDERLINE ECG WHEN COMPARED WITH ECG OF 13-AUG-2018 18:10, QUESTIONABLE CHANGE IN QRS AXIS Confirmed by Art Reyes ([id number]) on 05/13/2019 9:30:42 AM Referred By: Confirmed By:Art Reeys
[2019-05-13] MEDS ORDERED: FAMOTIDINE 20 MG/50 ML IVPB 20 MG/50 ML MG IVPB SCH (10:00)
--- NOTE | 2019-05-13 10:14 | CON.CARD ---
Consult Consult Specialty:: Cardiology - History of Present Illness History of Present Illness: 63-year-old woman morbidly obese with a history of hypertension, dyslipidemia, aaz-zoamvzp-xecfqbqiu diabetes mellitus, hypothyroidism, COPD, depression presents complaining of shortness of breath and some chest pain due to coughing which started earlier on 05/12/2019. She received Solu-Medrol and bronchodilator treatments in the emergency room which allegedly resolved her chest pain and shortness of breath. Patient also complained of some mild nonproductive cough that she has had for several weeks. Denied any fevers and chills. PMH chest pain syndrome HTN Hypothyroidism Morbid obesity Persantine MIBI stress test was negative in October 2015 - History Source History Provided By: Patient, Medical Record - Past Medical History Cardio/Vascular: Yes: CHF, HTN, Hyperlipdemia Pulmonary: Yes: COPD Endocrine: Yes: Diabetes Mellitus, Hypothyroidism - Alcohol/Substance Use Hx Alcohol Use: No - Smoking History Smoking history: Never smoked Have you smoked in the past 12 months: No Aproximately how many cigarettes per day: 1 Home Medications - Allergies Allergies/Adverse Reactions: Allergies Allergy/AdvReac Type Severity Reaction Status Date / Time No Known Allergies Allergy Verified 05/12/19 19:38 - Home Medications Home Medications: Ambulatory Orders Aspirin [ASA -] 81 mg PO DAILY 04/03/17 Furosemide [Lasix -] 40 mg PO DAILY 04/03/17 Gemfibrozil [Lopid -] 600 mg PO BID 04/03/17 Glipizide [Glipizide Xl] 5 mg PO DAILY 04/03/17 Meclizine HCl [Antivert -] 25 mg PO DAILY PRN 04/03/17 Pantoprazole Sodium [Protonix -] 40 mg PO DAILY 04/03/17 Sertraline HCl [Zoloft -] 100 mg PO DAILY 04/03/17 Simvastatin [Zocor] 80 mg PO HS 04/03/17 Valsartan [Diovan] 160 mg PO DAILY 04/03/17 metFORMIN HCL [Glucophage -] 500 mg PO BID 04/03/17 Albuterol Sulfate Inhaler - [Ventolin HFA Inhaler -] 1 puff IH DAILY 08/13/18 Azithromycin [Zithromax 250mg Tablets -] 250 mg PO UTDICT #6 tab 08/13/18 Budesonide/Formeterol Fumarate [SYMBICORT 160/4.5mcg -] 1 inh PO BID 08/13/18 Acetaminophen [Tylenol .Regular Strength -] 650 mg PO Q6H PRN tablet 08/17/18 Azithromycin [Zithromax 250mg Tablets -] 250 mg PO DAILY #2 tablet MDD 1 08/17/18 Levothyroxine [Synthroid -] 150 mcg PO DAILY@0700 tablet 08/17/18 Prednisone See Taper PO DAILY 12 Days #42 tablet 08/17/18 Topiramate [Topamax -] 50 mg PO DAILY tablet 08/17/18 Losartan Potassium 100 mg PO DAILY 05/13/19 Review of Systems - Review of Systems Constitutional: reports: No Symptoms Eyes: reports: No Symptoms HENT: reports: No Symptoms Neck: reports: No Symptoms Cardiovascular: reports: Chest Pain (cough induced. No other type of chest pain.) Respiratory: reports: SOB Gastrointestinal: reports: No Symptoms Genitourinary: reports: No Symptoms Breasts: reports: No Symptoms Reported Musculoskeletal: reports: No Symptoms Integumentary: reports: No Symptoms Neurological: reports: No Symptoms Endocrine: reports: No Symptoms Hematology/Lymphatic: reports: No Symptoms Psychiatric: reports: No Symptoms Vital Signs: Vital Signs Temperature 98.1 F 05/12/19 19:36 Pulse Rate 90 05/13/19 04:05 Respiratory Rate 18 05/13/19 04:05 Blood Pressure 117/76 05/13/19 04:05 O2 Sat by Pulse Oximetry (%) 98 05/13/19 04:05 Constitutional: Yes: Well Nourished, No Distress, Calm Eyes: Yes: WNL, Conjunctiva Clear, EOM Intact HENT: Yes: WNL, Atraumatic, Normocephalic Neck: Yes: WNL, Supple, Trachea Midline Respiratory: Yes: WNL, Regular, CTA Bilaterally Gastrointestinal: Yes: WNL, Normal Bowel Sounds Renal/: Yes: WNL Cardiovascular: Yes: WNL, Regular Rate and Rhythm Musculoskeletal: Yes: WNL Extremities: Yes: WNL Integumentary: Yes: WNL Neurological: Yes: WNL, Alert, Oriented ...Motor Strength: WNL Psychiatric: Yes: WNL, Alert, Oriented - Other Data Labs, Other Data: CBC, BMP 05/13/19 05:45 05/13/19 05:45 INR, PTT INR 0.87 (0.83-1.09) 05/12/19 21:40 Troponin, BNP 05/12/19 05/12/19 05/13/19 21:40 21:40 02:25 Troponin I < 0.02 < 0.02 B-Natriuretic Peptide 146.4 H 05/13/19 05:45 Troponin I < 0.02 B-Natriuretic Peptide Troponin, BNP 05/12/19 05/12/19 05/13/19 21:40 21:40 02:25 Troponin I < 0.02 < 0.02 B-Natriuretic Peptide 146.4 H 05/13/19 05:45 Troponin I < 0.02 B-Natriuretic Peptide Imaging - Results Chest X-ray: Image Reviewed (no i/e) EKG: Image Reviewed (nsr low voltage qrs) Problem List - Problems (1) ACS (acute coronary syndrome) Code(s): I24.9 - ACUTE ISCHEMIC HEART DISEASE, UNSPECIFIED (2) Abdominal pain Code(s): R10.9 - UNSPECIFIED ABDOMINAL PAIN (3) Acute bronchitis Code(s): J20.9 - ACUTE BRONCHITIS, UNSPECIFIED (4) Acute bronchitis with COPD Code(s): J44.0 - CHR OBSTRUCTIVE PULMON DISEASE WITH (ACUTE) LOWER RESP INFCT; J20.9 - ACUTE BRONCHITIS, UNSPECIFIED (5) COPD exacerbation Code(s): J44.1 - CHRONIC OBSTRUCTIVE PULMONARY DISEASE W (ACUTE) EXACERBATION (6) Diabetes mellitus Code(s): E11.9 - TYPE 2 DIABETES MELLITUS WITHOUT COMPLICATIONS (7) HLD (hyperlipidemia) Code(s): E78.5 - HYPERLIPIDEMIA, UNSPECIFIED (8) HTN (hypertension) Code(s): I10 - ESSENTIAL (PRIMARY) HYPERTENSION (9) Headache Code(s): R51 - HEADACHE (10) Leukocytosis Code(s): D72.829 - ELEVATED WHITE BLOOD CELL COUNT, UNSPECIFIED (11) Morbid obesity Code(s): E66.01 - MORBID (SEVERE) OBESITY DUE TO EXCESS CALORIES Assessment/Plan 63-year-old woman morbidly obese with a history of hypertension, dyslipidemia, nwx-nnemolk-nwycjcmyy diabetes mellitus, hypothyroidism, COPD, depression presents complaining of shortness of breath and atypical chest pain induced by coughing. r/o mi negative ECHO nl ef no RWMA Plan; cont ASA keep ldl below 70 Risk stratification as the outpatient.
--- NOTE | 2019-05-13 10:33 | ECHO ---
Name: ADELAIDA CHISHOLM Exam:Adult Echocardiogram Study Date: 05/13/2019 09:18 AM Age: 63 yrs Reason For Study: rule out ACS Height: 65 in Weight: 265 lb BSA: 2.2 m2 MMode/2D Measurements & Calculations IVSd: 1.2 cm Ao root diam: 2.5 cm LVIDd: 5.0 cm LA dimension: 4.2 cm LVIDs: 2.9 cm ACS: 1.5 cm LVPWd: 1.2 cm IVSs: 1.7 cm LVPWs: 1.3 cm EDV(Teich): 115.6 ml ESV(Teich): 32.5 ml LVOT diam: 1.7 cm RV S Dharmesh: 19.8 cm/sec Doppler Measurements & Calculations MV E max dharmesh: 136.0 cm/sec MVA(VTI): 3.0 cm2 MV A max dharmesh: 147.0 cm/sec MV V2 max: 150.2 cm/sec MV E/A: 0.93 MV max P.0 mmHg MV dec time: 0.17 sec MV V2 mean: 102.6 cm/sec MV mean P.7 mmHg MV V2 VTI: 24.9 cm Ao V2 max: 302.0 cm/sec LV V1 max P.7 mmHg Ao max P.5 mmHg LV V1 mean P.2 mmHg Ao V2 mean: 206.5 cm/sec LV V1 max: 147.6 cm/sec Ao mean P.7 mmHg LV V1 mean: 95.8 cm/sec Ao V2 VTI: 59.2 cm LV V1 VTI: 35.4 cm JASON(I,D): 1.3 cm2 JASON(V,D): 1.0 cm2 SV(LVOT): 76.0 ml TR max dharmesh: 232.4 cm/sec TR max P.6 mmHg PA V2 max: 112.3 cm/sec Med Peak E' Dharmesh: 9.9 cm/sec PA max P.0 mmHg Med E/e': 13.8 Lat Peak E' Dharmesh: 8.4 cm/sec Lat E/e': 16.2 Procedure Study Quality: Technically suboptimal. Left Ventricle The left ventricle is normal in size. There is mild concentric left ventricular hypertrophy. The left ventricular ejection fraction is normal. Ejection Fraction = 60-65%. The transmitral spectral Doppler flow pattern is suggestive of impaired LV relaxation. Right Ventricle The right ventricle is normal in size and function. Atria The left atrium is mildly dilated. Right atrial size is normal. Mitral Valve The mitral valve is grossly normal. Tricuspid Valve The tricuspid valve is not well visualized, but is grossly normal. No tricuspid regurgitation. Aortic Valve There is moderate aortic valve thickening. Mild to moderate valvular aortic stenosis. Pulmonic Valve The pulmonic valve is not well visualized. Great Vessels The aortic root is not well visualized. Pericardium/Pleura There is no pericardial effusion. Interpretation Summary LV: normal size,mild LVH,zehra systolic function, EF 60-65%, impaired relaxation RV: Normal LA: Mildly dilated AV; Mildly calcified, mild to moderate stenosis. Art Reyes 05/13/2019 10:32 AM
[2019-05-13 11:59] VITALS: TEMP 97.4
--- NOTE | 2019-05-13 14:16 | CONSULT ---
Consultation: REQUESTING PROVIDER: Dr. Parsons CONSULT REQUEST: We have been asked to medically evaluate this patient for chronic leukocytosis HISTORY OF PRESENT ILLNESS: 63 y/o F with PMH HTN, HLD, NIDDM, hypothyroid, COPD, depression who initially presented for SOB, chest pain and nonproductive cough over the past two days. Per pt, she did not have any inciting fx, however her breathing "tends to worsen" during this time of year. Pt is an ex-smoker, but has been exposed to 2' hand smoke from her daughter. She is currently being managed for COPD exacerbation as well as potential obesity hypoventilation syndrome with duonebs and medrol. We have been consulted for chronic leukocytosis. During this time, pt states that the treatment she received in the ER has improved her breathing. Denies FRAGA, fever, chills, chest pain or pressure or changes in urinary or bowel function. Pt has never been told that she had leukocytosis and has never seen a heme/onc physician. Upon chart review, during 2012 pt with elevated wbc to 20's however had suffered head trauma at time and was admitted to ICU. PMH: as above PsxH: c-sections x 5 meds: as in chart allergies: NKDA FH: father- cardiac issues, cancer (does not know the type or treatment undergone) grandfather- cardiac issues, diabetes SH: lives independently at home, ambulates with cane. ex-smoker, quit 15 yrs ago but has had 2' hand exposure from daughter who smokes. denies alcohol or drug use PHYSICAL EXAMINATION Vital Signs - 24 hr 05/12/19 05/13/19 05/13/19 19:36 00:11 04:05 Temperature 98.1 F Pulse Rate 69 Pulse Rate [ 72 90 Right Radial] Respiratory 18 20 18 Rate Blood Pressure 139/72 Blood Pressure 161/76 [Left Arm] Blood Pressure 117/76 [Right Arm] O2 Sat by Pulse 98 98 98 Oximetry (%) general: sitting up in bed, in NAD HEENT: NCAT neck: supple, no cervical lymphadenopathy cardio: S1, S2 RRR. no r/m/g pulm: decreased breath sounds d/t body habitus, however no wheezing, rhonchi or accessory m usage abdomen: obese, nontender, nondistended LE: 2+ pulses, no edema neuro: dipper and baker 2-12 grossly intact Laboratory Tests 05/12/19 05/13/19 05/13/19 21:40 02:25 05:45 WBC 9.0 Hgb 12.6 Hct 39.1 Plt Count 422 Puncture Site Random Glucose Alkaline Phosphatase Troponin I < 0.02 Total Protein Albumin TSH Influenza A (Rapid) Negative Influenza B (Rapid) Negative 05/13/19 05/13/19 05/13/19 05:45 05:45 06:30 WBC Hgb Hct Plt Count Puncture Site Right radial ABG pH 7.37 ABG pCO2 at Pt Temp 40.1 ABG pO2 at Pt Temp 67.0 L ABG HCO3 22.6 ABG O2 Sat (Measured) 91.8 L ABG O2 Content 15.1 ABG Base Excess -2.0 Sodium 141 Potassium 4.7 Chloride 106 Carbon Dioxide 22 Anion Gap 12 BUN 15.7 Creatinine 0.9 Random Glucose 224 H Hemoglobin A1c % 7.2 H Alkaline Phosphatase 192 H Troponin I < 0.02 Total Protein 7.9 Albumin 3.9 TSH 0.37 Influenza A (Rapid) Influenza B (Rapid) Active Medications Generic Name Dose Route Start Last Admin Trade Name Freq PRN Reason Stop Dose Admin Albuterol/Ipratropium 1 amp 05/13/19 04:00 05/13/19 11:57 Duoneb - NEB 1 amp RQ4H AMENA Administration Heparin Sodium (Porcine) 5,000 unit 05/13/19 06:00 05/13/19 06:15 Heparin - SQ 5,000 unit TID AMENA Administration Sodium Chloride 1,000 mls @ 50 mls/hr 05/13/19 01:30 05/13/19 02:29 Normal Saline - IV 05/14/19 01:24 50 mls/hr ASDIR AMENA Administration Famotidine/Sodium Chloride 20 mg in 50 mls @ 100 mls/hr 05/13/19 10:00 05/13/19 10:45 Pepcid 20 Mg Premixed Ivpb - IVPB 100 mls/hr BID AMENA Administration Insulin Aspart 1 vial 05/13/19 07:00 05/13/19 08:44 Novolog Vial Sliding Scale - SQ 2 units ACHS AMENA Administration Protocol Levothyroxine Sodium 150 mcg 05/13/19 07:00 05/13/19 06:15 Synthroid - PO 150 mcg DAILY@0700 AMENA Administration Losartan Potassium 100 mg 05/14/19 10:00 Cozaar - PO DAILY AMENA ASSESSMENT/PLAN: 63 y/o F with PMH HTN, HLD, NIDDM, hypothyroid, COPD, depression who initially presented for SOB, chest pain and nonproductive cough over the past two days. Per pt, she did not have any inciting fx, however her breathing "tends to worsen" during this time of year. #COPD exacerbation #resolved leukocytosis #HTN #HLD #NIDDM #hypothyroid #depression -leukocytosis has resolved, possible may have been 2/2 stress response, infection, steroid use -no need to follow at this time, if increases in future when not in exacerbation can undergo w/u at that time and f/u as outpatient -rest per primary team Thank you for this consult Case discussed w/ Dr. Jesenia Miles MD PGY-3 Heme-onc team Visit type - Emergency Visit Emergency Visit: No - New Patient This patient is new to me today: Yes Date on this admission: 05/13/19 - Critical Care Critical Care patient: No
--- NOTE | 2019-05-13 14:27 | DS ---
Physical Exam: SUBJECTIVE: Patient seen and examined. Patient states that she feels fine. Denies chest pain, SOB, abd pain, lightheadedness, fever, chills or other concerning symptoms. OBJECTIVE: Vital Signs Period Temp Pulse Resp BP Sys/Olivares Pulse Ox Last 24 Hr 97.4 F-98.1 F 69-90 18-20 117-161/70-78 97-98 PHYSICAL EXAM GENERAL: The patient is awake, alert, and fully oriented, in no acute distress. HEAD: Normal with no signs of trauma. EYES: PERRL, EOMI ENT: MMM NECK: Trachea midline, full range of motion, supple. LUNGS: Breath sounds equal, clear to auscultation bilaterally, no wheezes, no crackles, no accessory muscle use. HEART: RRR, cardiac murmur noted ABDOMEN: Soft, nontender, nondistended, normoactive bowel sounds EXTREMITIES: 2+ pulses, warm, well-perfused, no edema. NEUROLOGICAL: Cranial nerves II through XII grossly intact. Normal speech, gait not observed. no facial droop PSYCH: Normal mood, normal affect. SKIN: Warm, dry, normal turgor, no rashes or lesions noted. LABS Laboratory Results - last 24 hr 05/12/19 05/12/19 05/12/19 21:40 21:40 21:40 WBC 11.7 H RBC 4.41 Hgb 12.2 Hct 37.5 MCV 85.1 MCH 27.5 MCHC 32.4 RDW 15.8 H Plt Count 420 MPV 8.8 Absolute Neuts (auto) 7.0 Neutrophils % 59.8 Lymphocytes % 26.1 Monocytes % 9.9 Eosinophils % 3.7 Basophils % 0.5 Nucleated RBC % 0 PT with INR 10.20 INR 0.87 PTT (Actin FS) 34.3 Anticoagulation Therapy Puncture Site ABG pH ABG pCO2 at Pt Temp ABG pO2 at Pt Temp ABG HCO3 ABG O2 Sat (Measured) ABG O2 Content ABG Base Excess Dwayne Test Patient On Oxygen O2 Delivery Device Oxygen Flow Rate Vent Mode Vent Rate Mechanical Rate Pressure Support Vent Sodium 142 Potassium 4.0 Chloride 105 Carbon Dioxide 28 Anion Gap 10 BUN 16.3 Creatinine 0.8 Est GFR (CKD-EPI)AfAm 90.94 Est GFR (CKD-EPI)NonAf 78.46 POC Glucometer Random Glucose 89 Hemoglobin A1c % Calcium 9.0 Magnesium 2.3 Total Bilirubin 0.4 AST 38 H ALT 32 Alkaline Phosphatase 186 H Creatine Kinase 183 Creatine Kinase Index 1.4 CK-MB (CK-2) 2.6 Troponin I < 0.02 B-Natriuretic Peptide Total Protein 7.5 Albumin 3.9 TSH Urine Color Urine Appearance Urine pH Ur Specific [place] Urine Protein Urine Glucose (UA) Urine Ketones Urine Blood Urine Nitrite Urine Bilirubin Urine Urobilinogen Ur Leukocyte Esterase Urine WBC (Auto) Urine RBC (Auto) Urine Casts (Auto) U Epithel Cells (Auto) Urine Bacteria (Auto) Influenza A (Rapid) Influenza B (Rapid) 05/12/19 05/12/19 05/12/19 21:40 21:40 22:46 WBC RBC Hgb Hct MCV MCH MCHC RDW Plt Count MPV Absolute Neuts (auto) Neutrophils % Lymphocytes % Monocytes % Eosinophils % Basophils % Nucleated RBC % PT with INR INR PTT (Actin FS) Anticoagulation Therapy Puncture Site ABG pH ABG pCO2 at Pt Temp ABG pO2 at Pt Temp ABG HCO3 ABG O2 Sat (Measured) ABG O2 Content ABG Base Excess Dwayne Test Patient On Oxygen O2 Delivery Device Oxygen Flow Rate Vent Mode Vent Rate Mechanical Rate Pressure Support Vent Sodium Potassium Chloride Carbon Dioxide Anion Gap BUN Creatinine Est GFR (CKD-EPI)AfAm Est GFR (CKD-EPI)NonAf POC Glucometer Random Glucose Hemoglobin A1c % Calcium Magnesium Total Bilirubin AST ALT Alkaline Phosphatase Creatine Kinase Creatine Kinase Index CK-MB (CK-2) Troponin I B-Natriuretic Peptide 146.4 H Total Protein Albumin TSH Urine Color Yellow Urine Appearance Cloudy Urine pH 5.0 D Ur Specific [place] 1.012 Urine Protein Negative Urine Glucose (UA) Negative Urine Ketones Negative Urine Blood Negative Urine Nitrite Negative Urine Bilirubin Negative Urine Urobilinogen 0.2 Ur Leukocyte Esterase 2+ H Urine WBC (Auto) 30 Urine RBC (Auto) 7 Urine Casts (Auto) 5 U Epithel Cells (Auto) 5.3 Urine Bacteria (Auto) 257.6 Influenza A (Rapid) Negative Influenza B (Rapid) Negative 05/13/19 05/13/19 05/13/19 02:25 05:45 05:45 WBC 9.0 RBC 4.54 Hgb 12.6 Hct 39.1 MCV 86.2 MCH 27.7 MCHC 32.1 RDW 16.1 H Plt Count 422 MPV 9.2 Absolute Neuts (auto) 7.8 Neutrophils % 86.9 H D Lymphocytes % 11.7 D Monocytes % 0.8 L D Eosinophils % 0.0 D Basophils % 0.6 Nucleated RBC % 0 PT with INR INR PTT (Actin FS) Anticoagulation Therapy Puncture Site ABG pH ABG pCO2 at Pt Temp ABG pO2 at Pt Temp ABG HCO3 ABG O2 Sat (Measured) ABG O2 Content ABG Base Excess [place]wayne Test Patient On Oxygen O2 Delivery Device Oxygen Flow Rate Vent Mode Vent Rate Mechanical Rate Pressure Support Vent Sodium 141 Potassium 4.7 Chloride 106 Carbon Dioxide 22 Anion Gap 12 BUN 15.7 Creatinine 0.9 Est GFR (CKD-EPI)AfAm 78.87 Est GFR (CKD-EPI)NonAf 68.05 POC Glucometer Random Glucose 224 H Hemoglobin A1c % Calcium 9.2 Magnesium Total Bilirubin 0.5 AST 33 ALT 32 Alkaline Phosphatase 192 H Creatine Kinase Creatine Kinase Index CK-MB (CK-2) Troponin I < 0.02 < 0.02 B-Natriuretic Peptide Total Protein 7.9 Albumin 3.9 TSH 0.37 Urine Color Urine Appearance Urine pH Ur Specific [place] Urine Protein Urine Glucose (UA) Urine Ketones Urine Blood Urine Nitrite Urine Bilirubin Urine Urobilinogen Ur Leukocyte Esterase Urine WBC (Auto) Urine RBC (Auto) Urine Casts (Auto) U Epithel Cells (Auto) Urine Bacteria (Auto) Influenza A (Rapid) Influenza B (Rapid) 05/13/19 05/13/19 05/13/19 05:45 06:30 08:03 WBC RBC Hgb Hct MCV MCH MCHC RDW Plt Count MPV Absolute Neuts (auto) Neutrophils % Lymphocytes % Monocytes % Eosinophils % Basophils % Nucleated RBC % PT with INR INR PTT (Actin FS) Anticoagulation Therapy No Result Required. Puncture Site Right radial ABG pH 7.37 ABG pCO2 at Pt Temp 40.1 ABG pO2 at Pt Temp 67.0 L ABG HCO3 22.6 ABG O2 Sat (Measured) 91.8 L ABG O2 Content 15.1 ABG Base Excess -2.0 Dwayne Test Positive Patient On Oxygen No O2 Delivery Device Room air Oxygen Flow Rate 21% Vent Mode No Result Required. Vent Rate No Result Required. Mechanical Rate No Result Required. Pressure Support Vent No Result Required. Sodium Potassium Chloride Carbon Dioxide Anion Gap BUN Creatinine Est GFR (CKD-EPI)AfAm Est GFR (CKD-EPI)NonAf POC Glucometer 218 Random Glucose Hemoglobin A1c % 7.2 H Calcium Magnesium Total Bilirubin AST ALT Alkaline Phosphatase Creatine Kinase Creatine Kinase Index CK-MB (CK-2) Troponin I B-Natriuretic Peptide Total Protein Albumin TSH Urine Color Urine Appearance Urine pH Ur Specific [place] Urine Protein Urine Glucose (UA) Urine Ketones Urine Blood Urine Nitrite Urine Bilirubin Urine Urobilinogen Ur Leukocyte Esterase Urine WBC (Auto) Urine RBC (Auto) Urine Casts (Auto) U Epithel Cells (Auto) Urine Bacteria (Auto) Influenza A (Rapid) Influenza B (Rapid) 05/13/19 11:55 WBC RBC Hgb Hct MCV MCH MCHC RDW Plt Count MPV Absolute Neuts (auto) Neutrophils % Lymphocytes % Monocytes % Eosinophils % Basophils % Nucleated RBC % PT with INR INR PTT (Actin FS) Anticoagulation Therapy Puncture Site ABG pH ABG pCO2 at Pt Temp ABG pO2 at Pt Temp ABG HCO3 ABG O2 Sat (Measured) ABG O2 Content ABG Base Excess [place]wayne Test Patient On Oxygen O2 Delivery Device Oxygen Flow Rate Vent Mode Vent Rate Mechanical Rate Pressure Support Vent Sodium Potassium Chloride Carbon Dioxide Anion Gap BUN Creatinine Est GFR (CKD-EPI)AfAm Est GFR (CKD-EPI)NonAf POC Glucometer 172 Random Glucose Hemoglobin A1c % Calcium Magnesium Total Bilirubin AST ALT Alkaline Phosphatase Creatine Kinase Creatine Kinase Index CK-MB (CK-2) Troponin I B-Natriuretic Peptide Total Protein Albumin TSH Urine Color Urine Appearance Urine pH Ur Specific [place] Urine Protein Urine Glucose (UA) Urine Ketones Urine Blood Urine Nitrite Urine Bilirubin Urine Urobilinogen Ur Leukocyte Esterase Urine WBC (Auto) Urine RBC (Auto) Urine Casts (Auto) U Epithel Cells (Auto) Urine Bacteria (Auto) Influenza A (Rapid) Influenza B (Rapid) HOSPITAL COURSE: Date of Admission:05/12/19 Date of Discharge: 05/13/19 63 y/o/f with PMHx of HTN, HLD, NIDDM, hypothyroidism, COPD, depression who presents today with an episode of SOB and chest pain. Patient was admitted to rule out ACS. Trops were negative x3. Echocardiogram was completed and did not show any significant abnormalities. Chest Xray showed evidence of COPD without infiltrate. Patient has a history of leukocytosis but her WBC was normal this morning on labs, seen by Heme/Onc and does not not need follow up at this time. RUQ U/S showed hepatomegaly and fatty liver infiltration. Patient recommended to follow up with GI, pulm, and cardiology after discharge. Patient denied any chest pain, SOB, or other symptoms on interview today. Patient stable for discharge home. Minutes to complete discharge: 36 Discharge Summary Problems reviewed: Yes Reason For Visit: ACUTE CORONARY SYNDROME Current Active Problems ACS (acute coronary syndrome) (Acute) Condition: Improved - Instructions Diet, Activity, Other Instructions: You presented to the hospital due chest pain and shortness of breath. Your cardiac enzymes were negative and your EKG did not show any signs of damage to your heart. You had an ultrasound of your heart completed which did not show any significant abnormalities. You had an ultrasound of your liver which showed an enlarged and fatty liver. We recommend following up with a spare parts clerk for further workup. Follow up with the following physicians: 1. Please follow up with your primary care provider within one week of discharge for further management of your medical conditions. 2. Please follow up with Dr. Momin, Cardiology, within 1 week of discharge for further management and workup of the chest pain you experienced and to possible have a stress test completed as an outpatient. 3. Please follow up with a spare parts clerk within 1-2 weeks of discharge as an ultrasound of your abdomen showed your liver is enlarged and fatty infiltration of the liver. A referral has been provided for you. 4. Please follow up with a city constable within 1-2 weeks of discharge as we think you would benefit from a sleep study after you are discharged. A referral has been provided for you. Activity and Diet 1. Please monitor your diet as you need to intake foods with less salt, fat and sugars. 2. You are being discharged home, recommend daily exercise to strengthen your muscles. Continue all your other medications as prescribed Please return to the ER if you have any signs or symptoms of chest pain, shortness of breath, uncontrollable fever, chills, nausea, vomiting, numbness, tingling, or weakness in any part of your body, changes in vision, or slurred speech. Please return to the ER if symptoms persist, worsen, or new symptoms arise. Referrals: Yoon Chao NP [Primary Care Provider] - Shalom Bowen MD [Staff Physician] - Goran Momin MD [Staff Physician] - Jeremiah Escamilla MD, MD [Staff Physician] - Disposition: HOME - Home Medications Comprehensive Discharge Medication List: Ambulatory Orders Aspirin [ASA -] 81 mg PO DAILY 04/03/17 Furosemide [Lasix -] 40 mg PO DAILY 04/03/17 Glipizide [Glipizide Xl] 5 mg PO DAILY 04/03/17 Pantoprazole Sodium [Protonix -] 40 mg PO DAILY 04/03/17 Simvastatin [Zocor] 80 mg PO HS 04/03/17 metFORMIN HCL [Glucophage -] 500 mg PO BID 04/03/17 Albuterol Sulfate Inhaler - [Ventolin HFA Inhaler -] 1 puff IH DAILY 08/13/18 Levothyroxine [Synthroid -] 150 mcg PO DAILY@0700 tablet 08/17/18 Topiramate [Topamax -] 50 mg PO DAILY tablet 08/17/18 Cholecalciferol (Vitamin D3) [Vitamin D -] 1 tab PO DAILY 05/13/19 Famotidine [Pepcid -] 1 tab PO DAILY 05/13/19 Fluticasone Propionate [Flovent Hfa] 1 puff PO BID 05/13/19 Losartan Potassium 100 mg PO DAILY 05/13/19 Meloxicam 1 tab PO DAILY PRN 05/13/19 [place]-3/Dha/Epa/Fish Oil [[place] 3 500 Softgel] 1 cap PO DAILY 05/13/19 Polyvinyl Alcohol [Artificial Tears] 1 drop OU DAILY 05/13/19 This patient is new to me today: Yes Date on this admission: 05/13/19 Emergency Visit: Yes ED Registration Date: 05/12/19 Care time: The patient presented to the Emergency Department on the above date and was hospitalized for further evaluation of their emergent condition. Critical Care patient: No - Discharge Referral Referred to [facility] No ATTENDING PHYSICIAN STATEMENT I saw and evaluated the patient. I reviewed the resident's note and discussed the case with the resident. I agree with the resident's findings and plan as documented. SUBJECTIVE: OBJECTIVE: ASSESSMENT AND PLAN:
[2019-05-13 14:54] VITALS: BP 167/79; PULSE 95
[2019-05-14] MEDS ORDERED: LOSARTAN POTASSIUM 50 MG TABLET (FP) PO SCH (10:00)
--- NOTE | 2019-05-14 11:02 | EKG ---
Test Reason : Blood Pressure : / mmHG Vent. Rate : 091 BPM Atrial Rate : 091 BPM P-R Int : 174 ms QRS Dur : 084 ms QT Int : 384 ms P-R-T Axes : 068 028 043 degrees QTc Int : 472 ms NORMAL SINUS RHYTHM NORMAL ECG WHEN COMPARED WITH ECG OF 12-MAY-2019 21:16, NO SIGNIFICANT CHANGE WAS FOUND Confirmed by Lenny Salas MD ([id number]) on 05/14/2019 11:02:04 AM Referred By: Confirmed By:Lenny Salas MD
== END 2019-05-13 15:01 | disposition home or self-care (01) ==
LOC: JER 19:24 → JERBED 22:49
PROVIDERS: ADMIT Internal Medicine; ATTEND Internal Medicine
PROC: 3E0333Z Introduction of Anti-inflammatory into Peripheral Vein, Percutaneous Approach (ICD-10-PCS; principal; 2019-05-12)
PROC: 3E033GC Introduction of Other Therapeutic Substance into Peripheral Vein, Percutaneous Approach (ICD-10-PCS; 2019-05-12)
PROC: 3E013VG Introduction of Insulin into Subcutaneous Tissue, Percutaneous Approach (ICD-10-PCS; 2019-05-12)
PROC: 3E0337Z Introduction of Electrolytic and Water Balance Substance into Peripheral Vein, Percutaneous Approach (ICD-10-PCS; 2019-05-12)
PROC: 3E0F7GC Introduction of Other Therapeutic Substance into Respiratory Tract, Via Natural or Artificial Opening (ICD-10-PCS; 2019-05-12)
DX: I24.9 Acute ischemic heart disease, unspecified (principal); D72.829 Elevated white blood cell count, unspecified; R74.0 Nonspecific elevation of levels of transaminase and lactic acid dehydrogenase [LDH]; R10.9 Unspecified abdominal pain; J20.9 Acute bronchitis, unspecified; J44.0 Chronic obstructive pulmonary disease with (acute) lower respiratory infection; J44.1 Chronic obstructive pulmonary disease with (acute) exacerbation; I11.0 Hypertensive heart disease with heart failure; E78.5 Hyperlipidemia, unspecified; E11.9 Type 2 diabetes mellitus without complications; E03.9 Hypothyroidism, unspecified; I50.9 Heart failure, unspecified; K21.9 Gastro-esophageal reflux disease without esophagitis; F32.9 Major depressive disorder, single episode, unspecified; E66.01 Morbid (severe) obesity due to excess calories; Z68.41 Body mass index [BMI] 40.0-44.9, adult; Z87.891 Personal history of nicotine dependence; Z79.82 Long term (current) use of aspirin; Z79.84 Long term (current) use of oral hypoglycemic drugs
CPT/HCPCS: 36415; 36600; 71045-TC-FY; 76705-TC; 80053; 81003; 82550; 82553; 82803; 82962; 83036; 83735; 83880; 84443; 84484; 85025; 85610; 85730; 87086; 87804; 93005; 93010; 93306-TC; 94640; 96361; 96365; 96372; 96375; 99285-25; G0378; J1644; J7030

== ENCOUNTER 2024-05-08 15:49 | Inpatient (IN) | payer OTHER ==
[2024-05-08] MEDS: ALBUTEROL SO4 2.5/IPRATROPIUM 0.5 INH SOL 3 ML VIAL.NEB. NEB SCH (16:30)
[2024-05-08] MEDS ORDERED: MAGNESIUM 1GM/D5W - 1 GM/100 ML IVPB IVPB ONE (16:43)
[2024-05-08] MEDS ORDERED: methylPREDNISolone NA SUCC 125 MG/2 ML VIAL ONE (16:43)
[2024-05-08] MEDS: methylPREDNISolone NA SUCC 125 MG/2 ML VIAL IVPUSH ONE (17:08)
[2024-05-08] MEDS: CALCIUM GLUCONATE 10% - 1,000 MG/10 ML VIAL IVPUSH ONE (17:08)
[2024-05-08] MEDS: MAGNESIUM SULF 50% (8.12 MEQ/2 ML-1 GM VIAL) IVPB ONE (17:08)
[2024-05-08 17:18] LABS: VENOUS BASE EXCESS 4.9 mmol/L (-2-2); VENOUS O2 SATURATION 90.3 % (70-80); VENOUS PCO2 56.4 mmHg (38-52); VENOUS PH 7.369 (7.310-7.410)
[2024-05-08 17:20] LABS: BASO % 0.8 % (0-2.0); EOS % 2.1 % (0-4.5); HEMATOCRIT 40.1 % (32.4-45.2); HEMOGLOBIN 12.8 GM/dL (10.7-15.3); LYMPH % 29.6 % (8-40); MCH 28.9 pg (25.7-33.7); MCHC 31.9 g/dl (32.0-36.0); MEAN CELL VOLUME 90.7 fl (80-96); MEAN PLT VOLUME 11.6 fl (7.5-11.1); NEUT % 61.5 % (42.8-82.8); PLATELET COUNT 207 10^3/uL (134-434); RBC 4.42 M/mm3 (3.60-5.2); RDW 16.9 % (11.6-15.6); WHITE BLOOD COUNT 11.3 K/mm3 (4.0-10.0)
[2024-05-08 17:29] LABS: INR 0.94 (0.83-1.09); PROTHROMBIN TIME (PATIENT) 10.3 SEC (9.7-13.0)
[2024-05-08 17:31] LABS: ACTIVATED PTT 36.1 SECONDS (25.2-36.5)
[2024-05-08 17:45] LABS: POTASSIUM 4.4 mmol/L (3.5-5.1)
[2024-05-08 17:48] LABS: ALBUMIN 4.4 g/dl (3.4-5.0); BLOOD UREA NITROGEN 20.5 mg/dL (7-18); CALCIUM 9.5 mg/dL (8.5-10.1); MAGNESIUM 2.4 mg/dL (1.8-2.4)
[2024-05-08 17:52] LABS: CREATININE 1.1 mg/dL (0.55-1.3)
[2024-05-08 17:53] LABS: TOT PROT 7.6 g/dl (6.4-8.2)
[2024-05-08] MEDS: ALBUTEROL SO4 2.5/IPRATROPIUM 0.5 INH SOL 3 ML VIAL.NEB. NEB ONE (21:23)
[2024-05-08] MEDS ORDERED: FUROSEMIDE 40 MG/4 ML INJECTABLE VIAL ONE (23:20)
[2024-05-08] MEDS: FUROSEMIDE 40 MG/4 ML INJECTABLE VIAL IVPUSH ONE (23:25)
[2024-05-09] MEDS ORDERED: ALBUTEROL SO4 2.5/IPRATROPIUM 0.5 INH SOL 3 ML VIAL.NEB. NEB PRN (04:20)
[2024-05-09] MEDS: FUROSEMIDE 40 MG/4 ML INJECTABLE VIAL IVPUSH SCH (06:46)
[2024-05-09 06:47] LABS: ARTERIAL BLD GAS O2 SATURATION 84.3 % (95-98); ARTERIAL BLOOD GAS BASE EXCESS 0.2 mmol/L (-2-2); ARTERIAL BLOOD GAS PO2 50.2 mmHg (80-100); ARTERIAL BLOOD GAS pH 7.371 (7.350-7.450)
[2024-05-09] MEDS: INSULIN ASPART SLIDING SCALE (NOVOLOG) 1 VIAL SQ SCH (06:47)
[2024-05-09] MEDS: PANTOPRAZOLE 40 MG TABLET PO SCH (06:47)
[2024-05-09] MEDS: LEVOTHYROXINE NA 75 MCG TABLET (FP) PO SCH (06:47)
[2024-05-09 06:48] LABS: ALLENS TEST POSITIVE
[2024-05-09] MEDS: LOSARTAN POTASSIUM 50 MG TABLET PO SCH (09:56)
[2024-05-09] MEDS: ENOXAPARIN NA (PORCINE) 40 MG/0.4 ML DISP.SYRIN SQ SCH (09:56)
[2024-05-09] MEDS: LORATADINE 10 MG TABLET PO SCH (09:57)
[2024-05-09] MEDS: HYDROCHLOROTHIAZIDE 25 MG TABLET (FP) PO SCH (09:57)
[2024-05-09] MEDS ORDERED: FUROSEMIDE 40 MG TABLET (FP) PO SCH (10:00)
[2024-05-09] MEDS ORDERED: PATIENT'S OWN MEDICATION (NON-FORMULARY) (Linaclotide [Linzess] 290 MCG Capsule) PO SCH (10:00)
[2024-05-09] MEDS ORDERED: ALBUTEROL SO4 HFA INHALER IH PRN (10:00)
[2024-05-09 10:24] LABS: HEMATOCRIT 40.7 % (32.4-45.2); MCH 29.2 pg (25.7-33.7); MCHC 31.9 g/dl (32.0-36.0); MEAN CELL VOLUME 91.6 fl (80-96); MEAN PLT VOLUME 10.8 fl (7.5-11.1); PLATELET COUNT 212 10^3/uL (134-434); RBC 4.44 M/mm3 (3.60-5.2); RDW 16.6 % (11.6-15.6)
[2024-05-09 10:52] LABS: POTASSIUM 4.1 mmol/L (3.5-5.1)
[2024-05-09 10:55] LABS: ALBUMIN 4.5 g/dl (3.4-5.0); BLOOD UREA NITROGEN 19.9 mg/dL (7-18); CALCIUM 9.8 mg/dL (8.5-10.1)
[2024-05-09 10:58] LABS: CREATININE 1.4 mg/dL (0.55-1.3)
[2024-05-09 10:59] LABS: BILIRUBIN,TOTAL 0.8 mg/dL (0.2-1)
[2024-05-09] MEDS ORDERED: LEVOTHYROXINE SODIUM 100 MCG 5 ML VIAL IVPUSH SCH (11:30)
[2024-05-09] MEDS: ALBUTEROL SO4 2.5/IPRATROPIUM 0.5 INH SOL 3 ML VIAL.NEB. NEB SCH (16:05)
[2024-05-09] MEDS: ATORVASTATIN CA 80 MG TABLET (FP) PO SCH (21:54)
[2024-05-09] MEDS: MOMETASONE FUROATE 220 MCG/IH INHALER IH SCH (21:54)
[2024-05-09] MEDS: ACETAMINOPHEN 1000 MG/100 ML BAG IVPB PRN (21:54)
[2024-05-09] MEDS ORDERED: ZOLPIDEM TARTRATE 5 MG TABLET PO PRN (22:00)
[2024-05-09] MEDS ORDERED: ATORVASTATIN CA 40 MG TABLET (FP) PO SCH (22:00)
[2024-05-10 07:58] LABS: BASO % 0.4 % (0-2.0); HEMATOCRIT 37.7 % (32.4-45.2); HEMOGLOBIN 12.7 GM/dL (10.7-15.3); LYMPH % 26.9 % (8-40); MCHC 33.6 g/dl (32.0-36.0); MEAN CELL VOLUME 89.4 fl (80-96); MEAN PLT VOLUME 11.8 fl (7.5-11.1); MONO % 5.9 % (3.8-10.2); NEUT % 65.8 % (42.8-82.8); PLATELET COUNT 205 10^3/uL (134-434); RBC 4.22 M/mm3 (3.60-5.2); RDW 16.7 % (11.6-15.6); WHITE BLOOD COUNT 12.5 K/mm3 (4.0-10.0)
[2024-05-10 08:20] LABS: ALBUMIN 4.1 g/dl (3.4-5.0); BLOOD UREA NITROGEN 26.9 mg/dL (7-18); MAGNESIUM 2.5 mg/dL (1.8-2.4)
[2024-05-10 08:23] LABS: CREATININE 1.6 mg/dL (0.55-1.3)
[2024-05-10 08:24] LABS: BILIRUBIN,TOTAL 0.9 mg/dL (0.2-1)
[2024-05-10] MEDS: FUROSEMIDE 40 MG/4 ML INJECTABLE VIAL IVPUSH SCH (11:15)
[2024-05-10] MEDS: POLYETHYLENE GLYCOL (HEALTHYLAX) 3350 17 GM PACKET PO ONE (18:21)
[2024-05-10 23:44] VITALS: BMI 49.6
[2024-05-11] MEDS: LIOTHYRONINE SODIUM 5 MCG TABLET PO SCH (06:07)
[2024-05-11 07:08] LABS: BASO % 0.9 % (0-2.0); EOS % 3.6 % (0-4.5); HEMATOCRIT 37.5 % (32.4-45.2); HEMOGLOBIN 12.3 GM/dL (10.7-15.3); LYMPH % 40.3 % (8-40); MCH 29.6 pg (25.7-33.7); MCHC 32.7 g/dl (32.0-36.0); MEAN CELL VOLUME 90.7 fl (80-96); MEAN PLT VOLUME 10.5 fl (7.5-11.1); MONO % 8.3 % (3.8-10.2); NEUT % 46.9 % (42.8-82.8); PLATELET COUNT 193 10^3/uL (134-434); RBC 4.14 M/mm3 (3.60-5.2); RDW 16.3 % (11.6-15.6); WHITE BLOOD COUNT 9.9 K/mm3 (4.0-10.0)
[2024-05-11 07:18] LABS: POTASSIUM 3.8 mmol/L (3.5-5.1)
[2024-05-11 07:22] LABS: BLOOD UREA NITROGEN 23.7 mg/dL (7-18); CALCIUM 9.4 mg/dL (8.5-10.1); MAGNESIUM 2.3 mg/dL (1.8-2.4)
[2024-05-11 07:25] LABS: CREATININE 1.4 mg/dL (0.55-1.3)
[2024-05-11 07:26] LABS: PHOSPHOROUS 4.3 mg/dL (2.5-4.9)
[2024-05-11] MEDS: PANTOPRAZOLE 40 MG TABLET PO SCH (11:00)
[2024-05-11] MEDS: LEVOTHYROXINE SODIUM 100 MCG 5 ML VIAL IVPUSH SCH (11:01)
[2024-05-11] MEDS ORDERED: INSULIN ASPART SLIDING SCALE (NOVOLOG) 1 VIAL SQ ONE (18:22)
[2024-05-12 07:33] LABS: POTASSIUM 3.8 mmol/L (3.5-5.1)
[2024-05-12 07:36] LABS: CALCIUM 9.4 mg/dL (8.5-10.1)
[2024-05-12 07:37] LABS: ALBUMIN 4.2 g/dl (3.4-5.0); BLOOD UREA NITROGEN 22.3 mg/dL (7-18); MAGNESIUM 2.3 mg/dL (1.8-2.4)
[2024-05-12 07:40] LABS: CREATININE 1.5 mg/dL (0.55-1.3)
[2024-05-12 07:41] LABS: BILIRUBIN,TOTAL 1.2 mg/dL (0.2-1)
[2024-05-12] MEDS ORDERED: LIOTHYRONINE SODIUM 25 MCG TABLET PO SCH (18:05)
[2024-05-12] MEDS: MELATONIN 5 MG TABLETS PO PRN (21:40)
[2024-05-13] MEDS: LIOTHYRONINE SODIUM 5 MCG TABLET PO SCH (06:52)
[2024-05-13 08:04] LABS: BASO % 0.7 % (0-2.0); EOS % 4.9 % (0-4.5); HEMATOCRIT 39.6 % (32.4-45.2); HEMOGLOBIN 12.7 GM/dL (10.7-15.3); MCH 29.4 pg (25.7-33.7); MCHC 32.1 g/dl (32.0-36.0); MEAN CELL VOLUME 91.7 fl (80-96); MEAN PLT VOLUME 11.7 fl (7.5-11.1); MONO % 9.7 % (3.8-10.2); NEUT % 46.7 % (42.8-82.8); PLATELET COUNT 184 10^3/uL (134-434); RBC 4.32 M/mm3 (3.60-5.2); RDW 16.7 % (11.6-15.6); WHITE BLOOD COUNT 7.7 K/mm3 (4.0-10.0)
[2024-05-13 08:13] LABS: POTASSIUM 4.1 mmol/L (3.5-5.1)
[2024-05-13 08:17] LABS: CALCIUM 9.4 mg/dL (8.5-10.1)
[2024-05-13 08:18] LABS: BLOOD UREA NITROGEN 20.1 mg/dL (7-18); MAGNESIUM 2.4 mg/dL (1.8-2.4)
[2024-05-13 08:35] LABS: CREATININE 1.3 mg/dL (0.55-1.3)
[2024-05-13] MEDS: POLYETHYLENE GLYCOL (HEALTHYLAX) 3350 17 GM PACKET PO SCH (11:01)
[2024-05-13] MEDS: FUROSEMIDE 20 MG TABLET (FP) PO SCH (11:02)
[2024-05-13] MEDS ORDERED: MAGNESIUM HYDROX 2400MG/30ML ORAL SUSPENSION 30 ML CUP PO PRN (16:47)
[2024-05-14 07:36] LABS: HEMATOCRIT 37.4 % (32.4-45.2); MCH 29.4 pg (25.7-33.7); MCHC 32.1 g/dl (32.0-36.0); MEAN CELL VOLUME 91.6 fl (80-96); MEAN PLT VOLUME 11.4 fl (7.5-11.1); PLATELET COUNT 204 10^3/uL (134-434); RBC 4.09 M/mm3 (3.60-5.2); RDW 16.9 % (11.6-15.6); WHITE BLOOD COUNT 8.6 K/mm3 (4.0-10.0)
[2024-05-14 08:04] LABS: BLOOD UREA NITROGEN 18.8 mg/dL (7-18)
[2024-05-14 08:07] LABS: CREATININE 1.3 mg/dL (0.55-1.3)
[2024-05-14 08:08] LABS: BILIRUBIN,TOTAL 0.9 mg/dL (0.2-1); TOT PROT 7.1 g/dl (6.4-8.2)
[2024-05-14 08:09] LABS: ALBUMIN 4.2 g/dl (3.4-5.0)
[2024-05-15 07:38] LABS: HEMATOCRIT 37.4 % (32.4-45.2); MCH 29.4 pg (25.7-33.7); MCHC 32.2 g/dl (32.0-36.0); MEAN CELL VOLUME 91.3 fl (80-96); MEAN PLT VOLUME 11.5 fl (7.5-11.1); PLATELET COUNT 192 10^3/uL (134-434); RBC 4.09 M/mm3 (3.60-5.2); RDW 16.6 % (11.6-15.6); WHITE BLOOD COUNT 7.8 K/mm3 (4.0-10.0)
[2024-05-15 07:46] LABS: POTASSIUM 3.9 mmol/L (3.5-5.1)
[2024-05-15 07:50] LABS: BLOOD UREA NITROGEN 18.8 mg/dL (7-18)
[2024-05-15 07:53] LABS: CREATININE 1.2 mg/dL (0.55-1.3)
[2024-05-15 07:55] LABS: TOT PROT 6.7 g/dl (6.4-8.2)
[2024-05-15] MEDS: EMPAGLIFLOZIN (JARDIANCE) 10 MG TABLET PO SCH (11:26)
[2024-05-15 14:23] VITALS: BP 119/65; PULSE 54; RESP 18; TEMP 98.4
== END 2024-05-15 16:01 | disposition home health service (06) | DRG 643 ==
LOC: JER 15:49 → JERBED 20:44 → J4W 05-09 03:36 → OBSVTOIN 05-10 08:06
PROVIDERS: ADMIT Internal Medicine; ATTEND Internal Medicine
DX: E03.9 Hypothyroidism, unspecified (principal); I50.33 Acute on chronic diastolic (congestive) heart failure; Z68.42 Body mass index [BMI] 45.0-49.9, adult; I11.0 Hypertensive heart disease with heart failure; I35.0 Nonrheumatic aortic (valve) stenosis; E66.01 Morbid (severe) obesity due to excess calories; R00.1 Bradycardia, unspecified; E78.5 Hyperlipidemia, unspecified; K58.9 Irritable bowel syndrome, unspecified; F32.A Depression, unspecified; G47.00 Insomnia, unspecified; E87.70 Fluid overload, unspecified; E11.9 Type 2 diabetes mellitus without complications
CPT/HCPCS: 0241U-QW; 36415; 36600; 71045-TC-FY; 71275-TC; 74230-TC-FY; 80048; 80053; 80061; 82803; 82962; 83036; 83735; 83880; 84100; 84439; 84443; 84481; 84484; 85025; 85027; 85379; 85610; 85730; 92611-GN; 93005; 93010; 93306-TC; 94640; 94761; 97116-GP; 99285-25; G0378; J0131; Q9967